=== PATIENT | female | born 1950 ===

== ENCOUNTER 2021-06-16 03:22 | Inpatient (IN) | payer MEDICARE, MEDICAID ==
[2021-06-16 03:46] VITALS: BMI 32.5
[2021-06-16] MEDS ORDERED: Acetaminophen 325 MG TAB PO PRN (07:51)
[2021-06-16] MEDS ORDERED: Sodium Chloride 0.9% 1,000 ML IV SCH (08:00)
[2021-06-16 09:19] LABS: #Lymphocytes 1.4 thou/uL (1.20-3.40); #Monocytes 0.7 thou/uL (0.11-0.59); #Neutrophils 12.6 thou/uL (1.40-6.50); %Basophils 0.1 % (0.0-1.0); %Eosinophils 0.1 % (0.0-10.0); %Lymphocytes 9.7 % (21.0-51.0); %Monocytes 4.6 % (0.0-10.0); %Neutrophils 85.5 % (42.0-75.0); Hemoglobin 15.1 g/dL (12.0-16.0); Mean Corpuscular HGB CONC 33.2 g/dL (32.0-36.0); Mean Corpuscular Hemoglobin 29.9 pg (27.0-31.0); Mean Corpuscular Volume 90.2 fL (78.0-98.0); Mean Platelet Volume 8.4 fL (7.4-10.4); Platelet Count 225 thou/uL (130-400); RBC Distribution Width 12.9 % (11.5-14.5); Red Blood Cell (RBC) Count 5.06 mill/uL (4.20-5.40); White Blood Cell (WBC) Count 14.8 thou/uL (4.8-10.8)
[2021-06-16] MEDS ORDERED: Ondansetron ODT 8 MG TAB SL PRN (09:31)
[2021-06-16] MEDS ORDERED: Dextrose 50% Abboject 50 ML SYRINGE SLOW IVP PRN (09:33)
[2021-06-16] MEDS ORDERED: Dextrose 5% in Water 1,000 ML IV PRN (09:33)
[2021-06-16] MEDS ORDERED: HumaLOG 300 UNITS/3 ML VIAL SC PRN (09:33)
[2021-06-16 09:36] LABS: ALT (SGPT) 30 U/L (8-55); AST (SGOT) 30 U/L (5-34); Albumin 4.3 g/dL (3.4-4.8); Alkaline Phosphatase 99 U/L (40-110); Anion Gap 17 mmol/L (10-20); BUN (Urea Nitrogen) 13 mg/dL (9.8-20.1); Bilirubin, Total 0.8 mg/dL (0.2-1.2); Calc. Creatinine Clearance 89 mL/min (70-130); Calcium 9.6 mg/dL (7.8-10.44); Carbon Dioxide 20 mmol/L (23-31); Chloride 106 mmol/L (98-107); Globulin 2.8 g/dL (2.4-3.5); Glucose 180 mg/dL (80-115); Potassium 4.2 mmol/L (3.5-5.1); Protein, Total 7.1 g/dL (5.8-8.1); Sodium 139 mmol/L (136-145)
[2021-06-16] MEDS ORDERED: Enoxaparin Sodium 40 MG/0.4 ML SYRINGE SC SCH (09:45)
[2021-06-16] MEDS: Ondansetron PF 4 MG/2 ML Vial IVP PRN (09:53)
[2021-06-16] MEDS: Pantoprazole 40 MG VIAL IVP SCH (09:54)
[2021-06-16] MEDS ORDERED: CEFAZOLIN 2 GM in Premix Bag 1 BAG IVPB SCH (12:15)
[2021-06-16] MEDS: Potassium Chloride 20 MEQ in Lactated Ringer's 1,000 ML IV SCH ×2 (14:33→22:59)
[2021-06-16] MEDS: Ketorolac Tromethamine 30 MG/ML VIAL IVP PRN (20:13)
[2021-06-16] MEDS: Enoxaparin Sodium 40 MG/0.4 ML SYRINGE SC SCH (20:13)
[2021-06-17] MEDS: Potassium Chloride 20 MEQ in Lactated Ringer's 1,000 ML IV SCH ×3 (05:15→19:08)
[2021-06-17 05:37] LABS: #Basophils 0.1 thou/uL (0.0-0.2); #Eosinphils 0.1 thou/uL (0.0-0.7); #Lymphocytes 3.1 thou/uL (1.20-3.40); #Neutrophils 7.7 thou/uL (1.40-6.50); %Basophils 0.7 % (0.0-1.0); %Eosinophils 0.6 % (0.0-10.0); %Lymphocytes 25.9 % (21.0-51.0); %Monocytes 8.5 % (0.0-10.0); %Neutrophils 64.4 % (42.0-75.0); Hemoglobin 13.6 g/dL (12.0-16.0); Mean Corpuscular Volume 91.3 fL (78.0-98.0); Mean Platelet Volume 8.6 fL (7.4-10.4); Platelet Count 203 thou/uL (130-400); RBC Distribution Width 12.9 % (11.5-14.5); Red Blood Cell (RBC) Count 4.39 mill/uL (4.20-5.40); White Blood Cell (WBC) Count 11.9 thou/uL (4.8-10.8)
[2021-06-17 06:00] LABS: ALT (SGPT) 22 U/L (8-55); AST (SGOT) 18 U/L (5-34); Albumin 3.9 g/dL (3.4-4.8); Alkaline Phosphatase 86 U/L (40-110); Anion Gap 12 mmol/L (10-20); BUN (Urea Nitrogen) 18 mg/dL (9.8-20.1); Bilirubin, Total 1.3 mg/dL (0.2-1.2); Calc. Creatinine Clearance 89 mL/min (70-130); Calcium 9.5 mg/dL (7.8-10.44); Carbon Dioxide 28 mmol/L (23-31); Chloride 105 mmol/L (98-107); Globulin 2.4 g/dL (2.4-3.5); Glucose 124 mg/dL (80-115); Protein, Total 6.3 g/dL (5.8-8.1); Sodium 141 mmol/L (136-145)
[2021-06-17] MEDS ORDERED: Lidocaine 1% w/Epinephrine 1:100K 30 ML VIAL ONE (06:35)
[2021-06-17] MEDS ORDERED: Bupivacaine PF 0.5% 30 ML VIAL ONE (06:35)
[2021-06-17] MEDS ORDERED: Dexmedetomidine 200 MCG/2 ML VIAL ONE (06:45)
[2021-06-17] MEDS ORDERED: Fentanyl 100 MCG/2 ML VIAL ONE ×4 (06:45→10:47)
[2021-06-17] MEDS ORDERED: Lidocaine 1% PF 5 ML VIAL ONE (07:23)
[2021-06-17] MEDS ORDERED: ePHEDrine 50 MG/ML VIAL ONE (07:23)
[2021-06-17] MEDS ORDERED: Ondansetron PF 4 MG/2 ML Vial ONE (07:23)
[2021-06-17] MEDS ORDERED: Dexamethasone 20 MG/5 ML VIAL ONE (07:23)
[2021-06-17] MEDS ORDERED: Glycopyrrolate 0.2 MG/ML 5 ML SYRINGE ONE (07:23)
[2021-06-17] MEDS ORDERED: Rocuronium Bromide 10 MG/ML (10ML VIAL) ONE (07:23)
[2021-06-17] MEDS ORDERED: PHENYLEPHRINE-NS 100 MCG/ML 10 ML SYRINGE ONE (07:23)
[2021-06-17] MEDS ORDERED: Succinylcholine 200 MG/10 ml SYRINGE FS ONE (07:23)
[2021-06-17] MEDS ORDERED: PROPOFOL 200 MG/20 ML VIAL ONE (07:23)
[2021-06-17] MEDS ORDERED: Acetaminophen 500 MG TAB PO PRN (09:46)
[2021-06-17] MEDS ORDERED: Ibuprofen 600 MG TAB PO PRN (09:46)
[2021-06-17] MEDS ORDERED: Ondansetron HCl/PF 4 MG/2 ML Vial IVP PRN (09:47)
[2021-06-17] MEDS ORDERED: Promethazine HCl 25 MG/ML VIAL IM PRN (09:47)
[2021-06-17] MEDS ORDERED: Promethazine HCl 25 MG/ML VIAL IVPB PRN (09:47)
[2021-06-17] MEDS: Pantoprazole 40 MG VIAL IVP SCH (11:57)
[2021-06-17] MEDS: traMADol HCl 50 MG TAB PO SCH ×3 (12:22→20:18)
[2021-06-17 17:40] LABS: #Lymphocytes 0.8 thou/uL (1.20-3.40); #Monocytes 0.8 thou/uL (0.11-0.59); #Neutrophils 11.3 thou/uL (1.40-6.50); %Basophils 0.1 % (0.0-1.0); %Eosinophils 0.1 % (0.0-10.0); %Lymphocytes 5.9 % (21.0-51.0); %Monocytes 6.3 % (0.0-10.0); %Neutrophils 87.6 % (42.0-75.0); Hemoglobin 13.8 g/dL (12.0-16.0); Mean Corpuscular HGB CONC 33.2 g/dL (32.0-36.0); Mean Corpuscular Hemoglobin 29.8 pg (27.0-31.0); Mean Corpuscular Volume 89.7 fL (78.0-98.0); Mean Platelet Volume 8.2 fL (7.4-10.4); Platelet Count 179 thou/uL (130-400); RBC Distribution Width 12.7 % (11.5-14.5); Red Blood Cell (RBC) Count 4.63 mill/uL (4.20-5.40); White Blood Cell (WBC) Count 12.9 thou/uL (4.8-10.8)
[2021-06-17 18:06] LABS: Anion Gap 15 mmol/L (10-20); BUN (Urea Nitrogen) 13 mg/dL (9.8-20.1); Calc. Creatinine Clearance 103 mL/min (70-130); Calcium 9.1 mg/dL (7.8-10.44); Carbon Dioxide 22 mmol/L (23-31); Chloride 107 mmol/L (98-107); Glucose 153 mg/dL (80-115); Magnesium 1.6 mg/dL (1.6-2.6); Potassium 4.5 mmol/L (3.5-5.1); Sodium 139 mmol/L (136-145)
[2021-06-17] MEDS: Ketorolac Tromethamine 30 MG/ML VIAL IVP PRN (18:20)
[2021-06-17] MEDS ORDERED: Pantoprazole 40 MG VIAL IVP SCH (19:00)
[2021-06-17] MEDS: Fish Oil 1,000 MG CAP PO SCH (20:18)
[2021-06-17] MEDS: Enoxaparin Sodium 40 MG/0.4 ML SYRINGE SC SCH (20:18)
[2021-06-17] MEDS: metFORMIN 500 MG TAB PO SCH (20:18)
[2021-06-17] MEDS ORDERED: metFORMIN 500 MG TAB PO SCH (21:00)
[2021-06-17] MEDS ORDERED: Non-Formulary Item 1 EACH (Omega-3/Dha/Epa/Fish Oil [Fish Oil 1,000 Mg Softgel] 1 CAP Cap PO SCH (21:00)
[2021-06-18] MEDS: Ketorolac Tromethamine 30 MG/ML VIAL IVP PRN (02:35)
[2021-06-18] MEDS: traMADol HCl 50 MG TAB PO SCH ×4 (02:36→20:26)
[2021-06-18] MEDS: Potassium Chloride 20 MEQ in Lactated Ringer's 1,000 ML IV SCH ×2 (02:41→17:53)
[2021-06-18] MEDS: Levothyroxine Sodium 125 MCG TAB PO SCH (05:21)
[2021-06-18 06:24] LABS: Anion Gap 12 mmol/L (10-20); BUN (Urea Nitrogen) 12 mg/dL (9.8-20.1); Calc. Creatinine Clearance 103 mL/min (70-130); Calcium 8.8 mg/dL (7.8-10.44); Carbon Dioxide 25 mmol/L (23-31); Chloride 105 mmol/L (98-107); Glucose 110 mg/dL (80-115); Magnesium 1.6 mg/dL (1.6-2.6); Potassium 3.9 mmol/L (3.5-5.1); Sodium 138 mmol/L (136-145)
[2021-06-18] MEDS ORDERED: Non-Formulary Item 1 EACH (Omeprazole [Omeprazole] 20 MG Capsule.Dr) PO SCH (09:00)
[2021-06-18] MEDS: Fish Oil 1,000 MG CAP PO SCH ×2 (09:30→20:20)
[2021-06-18] MEDS: metFORMIN 500 MG TAB PO SCH ×2 (09:31→20:20)
[2021-06-18] MEDS: Polyethylene Glycol 3350 17 GM Packet PO SCH (09:33)
[2021-06-18] MEDS: Ondansetron PF 4 MG/2 ML Vial IVP PRN ×2 (18:04→23:01)
[2021-06-18] MEDS: Enoxaparin Sodium 40 MG/0.4 ML SYRINGE SC SCH (20:20)
[2021-06-18] MEDS: Lactated Ringer's 1,000 ML IV SCH (20:22)
[2021-06-19] MEDS: traMADol HCl 50 MG TAB PO SCH ×3 (02:57→20:42)
[2021-06-19] MEDS: Lactated Ringer's 1,000 ML IV SCH ×2 (06:05→20:42)
[2021-06-19] MEDS: Levothyroxine Sodium 125 MCG TAB PO SCH (09:40)
[2021-06-19] MEDS: metFORMIN 500 MG TAB PO SCH ×2 (09:44→20:42)
[2021-06-19] MEDS: Polyethylene Glycol 3350 17 GM Packet PO SCH (16:00)
[2021-06-19] MEDS: Fish Oil 1,000 MG CAP PO SCH ×2 (16:00→20:41)
[2021-06-19 16:13] VITALS: TEMP 98.3
[2021-06-19] MEDS: Enoxaparin Sodium 40 MG/0.4 ML SYRINGE SC SCH (20:41)
[2021-06-20] MEDS: traMADol HCl 50 MG TAB PO SCH (03:32)
[2021-06-20] MEDS: Lactated Ringer's 1,000 ML IV SCH (03:32)
[2021-06-20 05:12] VITALS: BP 100/67
[2021-06-20] MEDS: Levothyroxine Sodium 125 MCG TAB PO SCH (09:18)
[2021-06-20] MEDS: metFORMIN 500 MG TAB PO SCH (09:18)
== END 2021-06-20 13:30 | disposition home or self-care (01) | DRG 354 ==
LOC: SURG A 03:22
PROVIDERS: ADMIT Student in an Organized Health Care Education/Training Program; ATTEND Internal Medicine
PROC: 0WUF4JZ Supplement Abdominal Wall with Synthetic Substitute, Percutaneous Endoscopic Approach (ICD-10-PCS; principal; 2021-06-17)
PROC: 8E0W4CZ Robotic Assisted Procedure of Trunk Region, Percutaneous Endoscopic Approach (ICD-10-PCS; 2021-06-17)
DX: K42.0 Umbilical hernia with obstruction, without gangrene (principal); K56.50 Intestinal adhesions [bands], unspecified as to partial versus complete obstruction; E03.9 Hypothyroidism, unspecified; E11.9 Type 2 diabetes mellitus without complications; K43.0 Incisional hernia with obstruction, without gangrene; E66.9 Obesity, unspecified; Z20.822 Contact with and (suspected) exposure to COVID-19; Z90.49 Acquired absence of other specified parts of digestive tract; Z79.84 Long term (current) use of oral hypoglycemic drugs; Z68.32 Body mass index [BMI] 32.0-32.9, adult
CPT/HCPCS: 36415; 36416; 74018; 74019; 74022; 80048; 80053; 83735; 85025; 93005; 93010; C9113; J0690; J1100; J1650; J1815; J1885; J2405; J2704; J3010; J3480; J3490; J7120; S0020